=== PATIENT | female | born 1960 | race Caucasian/White ===

== ENCOUNTER → 2016-04-01 | Outpatient (CLI) | payer BC ==
[~2016-04-01] MED LIST: HYDR-3811 PO; LORA0.5T PO; MTC10T PO; NF-TORA10 PO; PRM25T PO; SERT100T PO; TRAZ300T3 PO
[2016-04-01 15:07] LABS: BASOPHILS % (AUTO) 0 % (0-2); EOSINOPHILS # (AUTO) 0.1 10^3uL; EOSINOPHILS % (AUTO) 2 % (0-4); LYMPHOCYTES # (AUTO) 1.4 X10^3; MEAN CORPUSCULAR HEMOGLOBIN 28.2 PG (26.0-34.0); MEAN CORPUSCULAR HGB CONC 32.2 g/dL (31.0-37.0); MEAN CORPUSCULAR VOLUME 87 FL (80-100); MEAN PLATELET VOLUME 10.2 FL (6.0-9.5); MONOCYTES # (AUTO) 0.5 X10^3; MONOCYTES % (AUTO) 9 % (3-11); NEUTROPHILS # (AUTO) 3.6 X10^3; NEUTROPHILS % (AUTO) 64 % (51-67); PLATELET COUNT 281 10^3uL (150-450); WHITE BLOOD COUNT 5.65 10^3uL (4.0-11.0)
[2016-04-01 15:25] LABS: ALBUMIN 4.4 g/dL (3.4-5.0); ANION GAP 15.8 MEQ/L (3-15); TOTAL PROTEIN 7.4 g/dL (6.4-8.5)
== END ==
LOC: LAB 14:48
PROVIDERS: ATTEND Internal Medicine Hematology & Oncology
DX: C20 Malignant neoplasm of rectum (principal)
CPT/HCPCS: 36415; 80053; 82378; 85025

== ENCOUNTER → 2016-04-23 | Outpatient (CLI) | payer BC | LOC: LAB 14:02 | PROVIDERS: ATTEND Internal Medicine | DX: Z53.9 Procedure and treatment not carried out, unspecified reason (principal) ==

== ENCOUNTER → 2016-04-27 | Outpatient (CLI) | payer BC ==
[2016-04-27 17:05] LABS: URINE CREATININE 24 HR 880 mg/24hr (800-2800); URINE TOTAL VOLUME-24 HRS 1000 mL
[2016-04-28 20:16] LABS: CALCIUM URINE MG/DL <2.0 mg/dL
== END ==
LOC: LAB 04-24 14:27
PROVIDERS: ATTEND Internal Medicine
DX: E21.3 Hyperparathyroidism, unspecified (principal)
CPT/HCPCS: 36415; 81050; 82340; 82570